=== PATIENT | male | born 2000 | race Caucasian/White ===

== ENCOUNTER 2023-07-16 20:40 | Emergency (ER) | payer OTHER, SELFPAY ==
[2023-07-16 20:42] VITALS: BP 135/76; PULSE 64; RESP 18; TEMP 36.1; O2SAT 100; BMI 28.4
--- NOTE | 2023-07-16 20:51 | EKG12_ITS ---
Test Reason : DYSRHYTHMIA Blood Pressure : / mmHG Vent. Rate : 067 BPM Atrial Rate : 067 BPM P-R Int : 140 ms QRS Dur : 096 ms QT Int : 380 ms P-R-T Axes : 055 076 037 degrees QTc Int : 401 ms Normal sinus rhythm with sinus arrhythmia Normal ECG Confirmed by [place] JUAREZ, MAHAMED ([id number]), communications editor JUAN LUIS ARAGON ([id number]) on 07/21/2023 10:08:16 AM Referred By: [facility] Confirmed By:TORI MCPHERSON MD
--- NOTE | 2023-07-16 21:00 | RAD_ITS ---
EXAM: XR CHEST, 1 VIEW CLINICAL INDICATION: PAIN TECHNIQUE: Frontal view of the chest. COMPARISON: No relevant prior studies available. FINDINGS: LUNGS AND PLEURAL SPACES: Unremarkable. No consolidation or edema. No pneumothorax. No effusion. HEART: Unremarkable. Cardiac silhouette not enlarged. MEDIASTINUM: Central airways and mediastinal contour are unremarkable. BONES/JOINTS: Unremarkable. No acute fracture. SOFT TISSUES: Unremarkable. RAD/Chest 1 View (Portable) IMPRESSION: No radiographic evidence of acute cardiopulmonary disease. Electronically Signed: Luis Armando Jones MD at 21:38 EDT ,
[2023-07-16 21:09] LABS: Absolute Lymphocyte Count 3.19 X10^3/uL (0.83-4.51); Absolute Neutrophil Count 3.6 X10^3/uL (2.0-7.7); Basophil# 0.07 X10^3/uL; Basophil% 0.9 % (0-1); Eosinophil# 0.11 X10^3/uL; Eosinophils% 1.5 % (0-5); Hematocrit 44.3 % (40-54); Hemoglobin 14.8 g/dL (13.0-16.5); Lymphocyte # 3.19 X10^3/ul (0.83-4.51); Lymphocyte % 42.4 % (19-41); Mean Corp Hgb Conc 33.4 g/dL (32-36); Mean Corpuscular Hgb 29.8 pg (27.0-32.0); Mean Corpuscular Volume 89.3 fL (80-94); Mean Platelet Vol. 9.4 fl (6.2-12.0); Monocyte# 0.49 X10^3/uL; Monocyte% 6.5 % (0-10); NRBC Flagged by Analyzer 0 % (0-5); Neutrophil # 3.63 X10^3/uL (2.7-7.7); Neutrophil % 48.3 % (47-70); Platelet Count 268 K/mm3 (150-450); RBC Distribution Width CV 11.1 % (11.6-14.6); Red Blood Count 4.96 M/mm3 (4.6-6.2); White Blood Count 7.5 K/mm3 (4.4-11.0)
[2023-07-16 21:26] LABS: Anion Gap 4 (5-15); BUN 16 mg/dL (7-18); BUN/Creat Ratio 12.8 RATIO (10-20); Chloride 107 mmol/L (98-107); Creatinine, Serum 1.25 mg/dL (0.70-1.30); EST Glomerular Filtration Rate 75 mL/min (>60); Est Glom Filt Rate - Afr Amer 90 mL/min (>60); Estimated Creatinine Clearance 111.17 ml/min; Glucose 128 mg/dL (74-106); Potassium 3.6 mmol/L (3.5-5.1); Sodium Level 142 mmol/L (136-145); Troponin-I HS 3 pg/mL (3.0-78.0)
[2023-07-16 21:30] VITALS: PULSE 70; RESP 14; O2SAT 98
--- NOTE | 2023-07-16 21:47 | EDS_ITS ---
HPI History of Present Illness Chief Complaint: Chest Pain Narrative Narrative: 23-year-old male with history of SVT, palpitations, PVCs presenting with retrosternal chest burning and epigastric burning. He states he did have spaghetti yesterday. Upon awakening today he had some epigastric pain and burning in the right side of his abdomen and chest. He does describe some dyspepsia in the retrosternal region as well. No nausea or vomiting. Patient states he ate a chicken Caesar sandwich and a Slovak sandwich today and his pain did not worsen although it still been persistent. Denies fever, chills, cough. Denies vomiting. Patient relates his history of SVT happened when he was in the emergency room and he had to be shocked. He states that the adenosine was not helping and he got 24 mg of this. He states all of his workup was in [place]. He states he is transplanted here to [place] and has not established care yet. [facility] states that several months until he can follow-up with him. Denies any history of cardiac disease other than history of SVT. Otherwise has been healthy. Patient had an echocardiogram 09/21/2022 which was normal at [facility]. PFSH PFSH Allergy/AdvReac Type Severity Reaction Status Date / Time No Known Allergies Allergy Verified 07/16/23 20:42 [facility] ED Constitutional Constitutional ED: Denies chills, fever(s) or sweats Eyes Eyes: Denies blurry vision or change in vision ENT ENT ED: Denies ear pain or sore throat Cardiovascular Cardiovascular: Reports chest pain; Denies palpitations or racing heartbeat Respiratory/Chest Respiratory/Chest: Denies cough, dyspnea or sputum Gastrointestinal Gastrointestinal: Reports abdominal pain; Denies constipation, diarrhea, nausea or vomiting Genitourinary Genitourinary ED: Denies dysuria, hematuria or urinary frequency Musculoskeletal Musculoskeletal: Denies arthralgias, myalgias or neck pain Integumentary Denies abscess, Abrasions or rash Neurologic Neurologic: Denies headache(s), paresthesias or weakness Psychiatric Psychiatric: Denies anxiety, depression, suicidal ideation or suicidal thoughts Endocrine Endocrinology: Denies polydipsia or polyuria EXAM Physical Exam Const Vital Signs: 07/16/23 20:42 Temperature 97 F L Temperature Source Temporal Pulse Rate 64 Respiratory Rate 18 Blood Pressure 135/76 H Blood Pressure Mean 95 Pulse Ox 100 Positive well nourished General Appearance ED: Negative for pallor HEENT Reports moist mucous membranes normocephalic and atraumatic Eyes PERRL and EOMs intact bilaterally Neck no lymphadenopathy Chest Wall inspection of chest normal Resp normal respiratory effort and clear to auscultation bilaterally Auscultation: Negative for rales, rhonchi or wheezes Cardio regular rate and regular rhythm GI normal to inspection, nondistended, normoactive bowel sounds Neuro oriented x3 and CN's II-XII intact bilaterally Sensorium / Orientation: awake and alert Motor Exam: strength 5/5 throughout Psych mental status grossly normal Skin no rashes or lesions noted General Skin Exam: Negative for jaundice or pallor Heart Score History: Slightly/Non-Suspicious ECG: Normal Age: </= 45 years Risk Factors: No Risk Factors Troponin: </= Normal Limit Score: 0 MDM MDM MDM Narrative Medical decision making narrative: Patient presenting with chest pain which has had for several hours today. No cardiac risk factors. Does have history of SVT which is in the differential however he states his heart rate has not been over 80-90. He states he checks when he has the symptoms. Patient also states he feels a little short of breath. Vital signs are stable and he is afebrile. He is PERC negative. Patient with previous cardiac workup which was negative. Echocardiogram perform ed last year in September was normal. CBC obtained today shows normal white blood cell count 7.5. Hemoglobin 14.8. Platelets are normal at 268. Renal function electrolytes within normal limits. High-sensitivity troponin is 3 and since he had symptoms most then with again repeated troponin. Patient does state that his symptoms worsened after eating spaghetti which would be suspicious for acid reflux. He states he did eat 2 subs today and was not having increased pain or nausea with it. His abdominal exam is benign. Negative Russell sign. Given this I feel the patient is stable for discharge. I [facility] as he states he does not want a local follow-up. Return precautions discussed. Impression: 1. Chest pain 2. Dyspepsia Lab Data Attestation: I reviewed the patient's lab results. Labs: Laboratory Results - last 24 hr 07/16/23 21:00 WBC 7.5 RBC 4.96 Hgb 14.8 Hct 44.3 MCV 89.3 MCH 29.8 MCHC 33.4 RDW Std Deviation 36.0 RDW Coeff of Dayana 11.1 L Plt Count 268 MPV 9.4 Immature Gran % (Auto) 0.400 Neut % (Auto) 48.3 Lymph % (Auto) 42.4 H Rosebud % (Auto) 6.5 Eos % (Auto) 1.5 Baso % (Auto) 0.9 Absolute Neuts (auto) 3.6 Absolute Lymphs (auto) 3.19 Nucleated RBC % 0 Sodium 142 Potassium 3.6 Chloride 107 Carbon Dioxide 31.0 Anion Gap 4 L BUN 16 Creatinine 1.25 Estim Creat Clear Calc 111.17 Est GFR (MDRD) Af Amer 90 Est GFR (MDRD) Non-Af 75 BUN/Creatinine Ratio 12.8 Glucose 128 H Calcium 9.0 Troponin I High Sens 3 Discharge Plan Triage Chief Complaint: Chest Pain ED Provider: Tree Peters Dx/Rx/DC Orders Primary Care Provider: Ronnie Patton Referrals: Ronnie Patton MD [Primary Care Provider] -
[2023-07-16 22:11] VITALS: BP 130/71; PULSE 55; RESP 16; TEMP 36.8; O2SAT 99
== END 2023-07-16 22:16 | disposition home or self-care (01) ==
PROVIDERS: Emergency Provider Student in an Organized Health Care Education/Training Program; Visit Provider Student in an Organized Health Care Education/Training Program
DX: R07.9 Chest pain, unspecified (principal); R10.13 Epigastric pain
CPT/HCPCS: 71045; 80048; 84484; 85025; 93005; 99283

== ENCOUNTER 2024-12-24 17:31 | Emergency (ER) | payer OTHER, SELFPAY ==
[2024-12-24 17:32] VITALS: BP 140/93; PULSE 152; RESP 18; TEMP 36.6; O2SAT 98
[2024-12-24 17:50] VITALS: BP 132/70; PULSE 190; RESP 22; O2SAT 100
[2024-12-24] MEDS: 0.9% Normal Saline (1000mL) 1,000 ML 999 ML IV ×2 (17:59→18:03)
[2024-12-24] MEDS: Cefazolin 1 GM/50 ML BAG IV (18:05)
[2024-12-24 18:13] LABS: Hematocrit 44.7 % (40-54); Hemoglobin 15.0 g/dL (13.0-16.5); Immature Granulocytes Count 0.210 X10^3/uL (0.0-0.0); Mean Corp Hgb Conc 33.6 g/dL (32-36); Mean Corpuscular Volume 91.6 fL (80-94); Mean Platelet Vol. 9.5 fl (6.2-12.0); NRBC Flagged by Analyzer 0 % (0-5); POSITIVE DIFFERENTIAL YES; POSITIVE MORPHOLOGY YES; Platelet Count 343 K/mm3 (150-450); RBC Distribution Width CV 11.8 % (11.6-14.6); RBC Distribution Width SD 39.4 fl (35.1-43.9); Red Blood Count 4.88 M/mm3 (4.6-6.2); White Blood Count 12.4 K/mm3 (4.4-11.0)
[2024-12-24 18:28] VITALS: BP 130/70; PULSE 188; RESP 20; TEMP 36.6; O2SAT 100
[2024-12-24 18:28] LABS: Differential Indicated SCAN CRITERIA MET
[2024-12-24 18:51] LABS: Lipase 58 U/L (13-75)
[2024-12-24 19:07] LABS: AST(SGOT) 218 U/L (<=37); Alanine Aminotransfer ALT/SGPT 235 U/L (<=46); Albumin, Serum 4.3 g/dL (3.5-5.0); Alkaline Phosphatase 92 U/L (40-129); Anion Gap 18 (5-15); BUN 11 mg/dL (4-19); BUN/Creat Ratio 9.7 RATIO (10-20); Calcium,Total 8.1 mg/dL (7.6-11.0); Carbon Dioxide 18.2 mmol/L (21.0-32.0); Chloride 101 mmol/L (98-108); Globulin 2.8 g/dL (2.2-4.2); Glucose 178 mg/dL (70-99); Potassium 2.9 mmol/L (3.3-5.1)
[2024-12-24 19:11] LABS: Differential Comment SCANNED
[2024-12-24 22:32] LABS: Alcohol, Blood (Medical)-Serum 248.0 mg/dL (<=10.0)
== END 2024-12-24 18:43 | disposition short-term general hospital (02) ==
PROVIDERS: Emergency Provider Emergency Medicine; Visit Provider Emergency Medicine
DX: S82.92XB Unspecified fracture of left lower leg, initial encounter for open fracture type I or II (principal); I46.8 Cardiac arrest due to other underlying condition; S62.102A Fracture of unspecified carpal bone, left wrist, initial encounter for closed fracture; S09.90XA Unspecified injury of head, initial encounter; S29.9XXA Unspecified injury of thorax, initial encounter; S39.91XA Unspecified injury of abdomen, initial encounter; S00.81XA Abrasion of other part of head, initial encounter; S00.212A Abrasion of left eyelid and periocular area, initial encounter; S20.412A Abrasion of left back wall of thorax, initial encounter; S30.81AA Abrasion of flank, initial encounter; V23.49XA Other motorcycle driver injured in collision with car, pick-up truck or van in traffic accident, initial encounter; I47.10 Supraventricular tachycardia, unspecified
CPT/HCPCS: 31500; 51702; 70450; 70486; 71260; 72125; 74177; 80053; 82077; 82962; 83690; 85025; 90715; 92950; 93005; 96365; 96372; 99252; 99285; Q9967; A4216; G0463; J0153